=== PATIENT | female | born 1960 | race Caucasian/White ===

== ENCOUNTER 2018-11-14 06:15 | Outpatient (CLI) | payer OTHER ==
[~2018-11-14] VITALS: Ht 170.2 cm; Wt 68.0 kg
[2018-11-14] MEDS ORDERED: VITA100035 PO (13:15)
[2018-11-14] MEDS ORDERED: NFBIOT1000 PO (13:15)
[2018-11-14] MEDS ORDERED: MELA10TA3 PO (13:15)
[2018-11-14] MEDS ORDERED: CALC600T12 PO (13:15)
[2018-11-14] MEDS ORDERED: NIFE30TA89 PO (13:15)
[2018-11-14] MEDS ORDERED: MULT-1029 PO (13:15)
[2018-11-14] MEDS ORDERED: GLUC-116 PO (13:15)
[2018-11-14] MEDS ORDERED: THYR30TA2 PO (13:15)
== END 2018-11-14 13:27 | disposition home or self-care (01) ==
LOC: PREOP 06:15 → EDUNIT# 13:00 → PREOP 13:27
PROVIDERS: ATTEND Otolaryngology Otolaryngology/Facial Plastic Surgery
DX: Z01.818 Encounter for other preprocedural examination (principal)

== ENCOUNTER 2018-11-17 06:23 | Day surgery (SDC) | payer OTHER ==
[~2018-11-17] VITALS: Ht 170.2 cm; Wt 68.0 kg
[~2018-11-17 06:23] MED LIST: CALC600T12 PO; GLUC-116 PO; MELA10TA3 PO; MULT-1029 PO; NFBIOT1000 PO; NIFE30TA89 PO; THYR30TA2 PO; VITA100035 PO
[2018-11-17 06:45] VITALS: BP 166/95
[2018-11-17] MEDS ORDERED: BSS 15 ML ONE (07:05)
[2018-11-17] MEDS ORDERED: MUPIROCIN 2% OINT 22 GM (BACTROBAN) TUBE ONE (07:05)
[2018-11-17] MEDS ORDERED: LIDOCAINE/EPI 1%-1:100,000 (XYLOCAINE) 20ML ONE (07:05)
[2018-11-17] MEDS: LACTATED RINGERS 1,000 ML IV PRN ×2 (07:08→09:12)
[2018-11-17] MEDS ORDERED: LIDOCAINE PF 2% 5 ML (XYLOCAINE) VIAL ONE (07:09)
[2018-11-17] MEDS ORDERED: ONDANSETRON 4 MG/2 ML (SDV) Z0FRAN ONE (07:09)
[2018-11-17] MEDS ORDERED: SEVOFLURANE (ULTANE) 15 ML INHAL SOLN ONE ×2 (07:09→10:34)
[2018-11-17] MEDS ORDERED: proPOfol 200 MG/20 ML (DIPRIVAN) VIAL IV ONE (07:09)
[2018-11-17] MEDS ORDERED: ROCURONIUM 10 MG/ML 5 ML SYRINGE IV ONE (07:09)
[2018-11-17] MEDS ORDERED: DEXAMETHASONE 10 MG/ML (DECADRON) 1 ML VIAL ONE (07:09)
[2018-11-17] MEDS ORDERED: MIDAZOLAM 2 MG/2 ML (VERSED) VIAL ONE (07:10)
[2018-11-17] MEDS ORDERED: fentaNYL INJECTION 100 MCG/2 ML AMP ONE (07:10)
--- NOTE | 2018-11-17 07:11 | Progress Note-Pre Operative ---
Pre-Operative Progress Note H&P Reviewed The H&P was reviewed, patient examined and no changes noted. Date Seen by Provider: Nov 17, 2018 Time Seen by Provider: 07:00 Date H&P Reviewed: Nov 17, 2018 Time H&P Reviewed: 07:00 Pre-Operative Diagnosis: Skin Cancer Tip of Nose AMELIE ELLISON MD Nov 17, 2018 07:11
--- NOTE | 2018-11-17 09:46 | Progress Note-Post Operative ---
Post-Operative Progess Note Surgeon (s)/Acetylene Torch Solderer (s) Surgeon AMELIE ELLISON MD Acetylene Torch Solderer n/a Pre-Operative Diagnosis Skin Cancer Tip of Nose Post-Operative Diagnosis same Post-Op Procedure Note Date of Procedure: Nov 17, 2018 Name of Procedure Performed: Excsion of Nasal Tip Lesion with INtermediate Repair Description & Findings Description and Findings: n/a Anesthesia Type lma Estimated Blood Loss minimal Packing none. Specimen(s) collected/removed nasal tip lesion-squamous harmeet lca with clear margins AMELIE ELLISON MD Nov 17, 2018 09:45
[2018-11-17] MEDS ORDERED: ACETAMINOPHEN 325 MG TABLET PO PRN (10:00)
[2018-11-17] MEDS ORDERED: HYDR-3812 PO (10:35)
[2018-11-17 10:50] VITALS: BP 140/90
[2018-11-17] MEDS ORDERED: HYDROcodone/APAP 5 MG/325 MG (LORTAB) TAB ONE (10:59)
[2018-11-17] MEDS: HYDROcodone/APAP 5 MG/325 MG (LORTAB) TAB PO PRN ×2 (11:15→12:00)
--- NOTE | 2018-11-17 11:15 | NUR ---
LORTAB 5/325 1 GIVEN FOR PAIN THAT THE PATIENT RATES A 5. 1200: REPEATED LORTAB. PAIN STILL A 5 OUT OF 10.
[2018-11-17 11:20] VITALS: BP 143/91
[2018-11-17 11:50] VITALS: BP 141/92
--- NOTE | 2018-11-17 12:46 | Anesthesia-General Post-Op ---
General Patient Condition Mental Status/LOC: Same as Preop Cardiovascular: Satisfactory Nausea/Vomiting: Absent Respiratory: Satisfactory Pain: Controlled Complications: Absent Post Op Complications Complications None Follow Up Care/Instructions Patient Instructions None needed. Anesthesia/Patient Condition Patient Condition Patient is doing well, no complaints, stable vital signs, no apparent adverse anesthesia problems. No complications reported per nursing. D/C home per [facility] Criteria: Yes BRANDI ORTIZ CRNA Nov 17, 2018 12:46
== END 2018-11-17 12:05 | disposition home or self-care (01) ==
LOC: SDC 06:23
PROVIDERS: ATTEND Otolaryngology Otolaryngology/Facial Plastic Surgery
DX: C44.321 Squamous cell carcinoma of skin of nose (principal); I10 Essential (primary) hypertension; Z79.899 Other long term (current) drug therapy
CPT/HCPCS: 87081